=== PATIENT | female | born 1980 | race Caucasian/White ===

== ENCOUNTER 2017-01-22 14:47 | Emergency (ER) | payer MEDICAID ==
[2017-01-22 15:34] VITALS: O2SAT 100
--- NOTE | 2017-01-22 16:27 | C.PDOC ---
History Of Present Illness 36 yr old female presents to the ER s/p fall 3 days ago and now complaints of recurring vaginal bleeding. Patient states she misstepped 3 steps, landing on her lower back. Patient states, initially has resolved but then started again today. Patient denies trauma, nausea, vomiting, abdominal pain, diarrhea, dysuria, weakness or numbness. Patient is . SP FALL 3 DAYS AGO CO RECUR VB. PS MISSTEPPED 3 STEPS LANDED ON LOWER BACK. INITIALLY W VB, RESOLVED THEN RECUR AGAIN TODAY. DENIES ABD TRAUMA, PAIN. LMP 12/13/16 EGA 5 WKS 5D EXAM NAD ABD NEG BACK NEG Time Seen by Provider: 01/22/17 15:44 Chief Complaint (Nursing): Female Genitourinary History Per: Patient History/Exam Limitations: no limitations Onset/Duration Of Symptoms: Days (3 days) Current Symptoms Are (Timing): Still Present Past Medical History Reviewed: Historical Data, Nursing Documentation, Vital Signs Vital Signs: Last Vital Signs Temp 98.1 F 01/22/17 15:32 Pulse 108 H 01/22/17 15:32 Resp 18 01/22/17 15:32 BP 113/70 01/22/17 15:32 Pulse Ox 100 01/22/17 18:34 - [facility] Procedures EPISIOTOMY (03/21/14) Family History: States: No Known Family Hx - Social History Hx Alcohol Use: No Hx Substance Use: No - Immunization History Hx Tetanus Toxoid Vaccination: No Hx Influenza Vaccination: No Hx Pneumococcal Vaccination: No Review Of Systems Except As Marked, All Systems Reviewed And Found Negative. Gastrointestinal: Negative for: Nausea, Vomiting, Abdominal Pain, Diarrhea Genitourinary: Positive for: Vaginal Bleeding. Negative for: Dysuria Neurological: Negative for: Weakness, Numbness Physical Exam - Physical Exam Appears: Non-toxic, No Acute Distress Skin: Warm, Dry, No Rash Head: Atraumatic, Normacephalic Oral Mucosa: Moist Chest: Symmetrical, No Tenderness Cardiovascular: Rhythm Regular, No Murmur Respiratory: Normal Breath Sounds, No Rales, No Rhonchi, No Stridor, No Wheezing Gastrointestinal/Abdominal: Normal Exam, Soft, No Tenderness, No Guarding, No Rebound Extremity: Normal ROM, No Swelling Neurological/Psych: Oriented x3, Normal Speech, Normal Motor, Normal Sensation ED Course And Treatment O2 Sat by Pulse Oximetry: 100 (RA) Pulse Ox Interpretation: Normal Progress - Re-Evaluation Re-evaluation Note: 01/22/17 18:34 EXAM [facility] LABS, US REPORT PENDING - Data Reviewed Data Reviewed: Lab, Diagnostic imaging Medical Decision Making Medical Decision Making: PLAN: * US - Pelvis, Transvaginal * CBC * CMP * HCG * Urinalysis Disposition - Disposition Disposition Time: 19:00 Condition: STABLE Forms: [employer] ([place]) - Clinical Impression Clinical Impression: Threatened miscarriage, Fall - Scribe Statement The provider has reviewed the documentation as recorded by the Barbara Evangelista Provider Attestation: All medical record entries made by the Candelariaibpierce were at my direction and personally dictated by me. I have reviewed the chart and agree that the record accurately reflects my personal performance of the history, physical exam, medical decision making, and the department course for this patient. I have also personally directed, reviewed, and agree with the discharge instructions and disposition. Physician Patient Turnover Patient Signed Over To: Alexa Roach Handoff Comments: FU LABS, US REPORT, DISPO
[2017-01-22 18:31] LABS: RBC URINE 16 /hpf (0-3); URINE BACTERIA OCC (<OCC); URINE BILIRUBIN NEGATIVE (NEGATIVE); URINE BLOOD 3+ (NEGATIVE); URINE COLOR Red (YELLOW); URINE GLUCOSE (UA) NORMAL (Normal); URINE KETONE NEGATIVE (NEGATIVE); URINE LEUKOCYTE ESTERASE 1+ Leu/uL (Negative); URINE PROTEIN 1+ mg/dL (NEGATIVE); URINE UROBILINOGEN NORMAL mg/dL (0.2-1.0); WBC URINE 7 /hpf (0-5)
--- NOTE | 2017-01-22 18:46 | US ---
HISTORY: Trauma, by history 5 weeks . LMP 12/13/2016. COMPARISON: None available. TECHNIQUE: Transabdominal, transvaginal. Real -time technique with 2D, duplex and color Doppler. FINDINGS: UTERUS: Measures 4.1 x 4.4 x 3.7 cm. Normal in size and appearance. Subcentimeter fibroid anterior midline uterine body. ENDOMETRIUM: Measures 10.2 mm in diameter. Unremarkable. CERVIX: No cervical abnormality identified. Closed cervix 3.6 cm. RIGHT OVARY: Measures 2.2 x 3.2 x 3 cm. Mass lesion 1.4 x 1.7 cm likely complex debris laden or hemorrhagic cysts. Normal flow. LEFT OVARY: Measures 1.3 x 1.9 x 2.2 cm. No solid mass. Normal flow. FREE FLUID: No significant free fluid noted. OTHER FINDINGS: None. IMPRESSION: No visible intrauterine gestation. No identifiable ectopic . Complex cyst/ mass right ovary.
[2017-01-22 18:51] LABS: BASO % 0.2 % (0.0-2.0); HEMATOCRIT 38.9 % (34.0-47.0); LYMPH # 1.1 K/uL (1.0-4.3); LYMPH % 10.8 % (20.0-40.0); MEAN CELL VOLUME 89.6 fL (81.0-99.0); MEAN CORPUSCULAR HEMOGLOBIN 29.8 pg (27.0-31.0); MEAN CORPUSCULAR HGB CONC 33.2 g/dL (33.0-37.0); MEAN PLATELET VOLUME 8.4 fL (7.2-11.7); MONO # 0.3 K/uL (0.0-0.8); MONO % 3.2 % (0.0-10.0); NRBC % 0.1 % (0.0-2.0); RED CELL DISTRIBUTION WIDTH 13.7 % (11.5-14.5); WHITE BLOOD COUNT 9.7 K/uL (4.8-10.8)
[2017-01-22 18:58] LABS: CHLORIDE 105 mmol/L (98-107)
[2017-01-22 18:59] LABS: POTASSIUM 3.9 mmol/L (3.6-5.2); SODIUM 139 mmol/L (132-148)
[2017-01-22 19:01] LABS: ALB/GLOB RATIO 1.4 (1.0-2.1); AST/SGOT 23 U/L (14-36); BILIRUBIN,TOTAL 0.6 mg/dL (0.2-1.3); CARBON DIOXIDE 19 mmol/L (22-30); GFR AFRICAN-AMERICAN > 60
[2017-01-22 19:02] LABS: ALKALINE PHOSPHATASE 58 U/L (38-126); ALT/SGPT 31 U/L (9-52); BLOOD UREA NITROGEN 7 mg/dL (7-17); CALCIUM 9.6 mg/dl (8.6-10.4); GLUCOSE,RANDOM 87 mg/dL (65-105)
[2017-01-22 20:13] VITALS: BP 111/72; PULSE 92; RESP 16; TEMP 98.6
== END 2017-01-22 20:13 | disposition home or self-care (01) ==
LOC: C.ER 14:47
DX: O20.0 Threatened abortion (principal); Z3A.01 Less than 8 weeks gestation of pregnancy; W10.8XXA Fall (on) (from) other stairs and steps, initial encounter; Y93.9 Activity, unspecified; Y92.9 Unspecified place or not applicable

== ENCOUNTER 2017-01-24 12:16 | Emergency (ER) | payer MEDICAID ==
[2017-01-24 12:22] VITALS: BP 105/67; PULSE 98; TEMP 98.6; O2SAT 99
--- NOTE | 2017-01-24 13:25 | C.PDOC ---
History Of Present Illness 36yo female with LMP on 12/13 presents to the ED for repeat Beta-HCG as instructed during her prior visit. Patient reports vaginal bleeding for the past 5 days and states she uses 2-3 pads per day. She denies any abdominal pain. Of note, patient was seen in the ED 2 days ago and had Beta levels of approximately 300 and an US was done, indicating a right ovarian cyst and no IUP was noted. Patient offers no additional medical complaints. Time Seen by Provider: 01/24/17 12:38 Chief Complaint (Nursing): Female Genitourinary History Per: Patient History/Exam Limitations: no limitations Onset/Duration Of Symptoms: Days (5) Current Symptoms Are (Timing): Still Present Reports Recently: Seen In ED (2 days ago) Recent travel outside of the [place]: No Additional History Per: Patient Past Medical History Reviewed: Historical Data, Nursing Documentation, Vital Signs Vital Signs: Last Vital Signs Temp 98.6 F 01/24/17 12:21 Pulse 98 H 01/24/17 12:21 Resp 20 01/24/17 14:41 BP 105/67 01/24/17 12:21 Pulse Ox 99 01/24/17 14:19 - Medical History PMH: No Chronic Diseases Surgical History: No Surg Hx - [facility] Procedures EPISIOTOMY (03/21/14) Family History: States: No Known Family Hx - Social History Hx Alcohol Use: No Hx Substance Use: No - Immunization History Hx Tetanus Toxoid Vaccination: No Hx Influenza Vaccination: No Hx Pneumococcal Vaccination: No Review Of Systems Gastrointestinal: Negative for: Abdominal Pain Genitourinary: Positive for: Vaginal Bleeding (x 5 days) Physical Exam - Physical Exam Additional Physical Exam Comments: Constitutional: No acute distress. WDWN. Head: Normocephalic. Atraumatic. Neck: Supple. Cardiovascular: Regular rate and rhythm. Respiratory: Clear to auscultation bilaterally. GI: Soft. Nontender. Nondistended. Normoactive bowel sounds. No rebound. No guarding. Neurologic: Alert, no focal deficit. ED Course And Treatment O2 Sat by Pulse Oximetry: 99 Medical Decision Making Medical Decision Making: Impression: 36y/o female with vaginal bleeding x 5 days; On patient;s last visit 2 days ago, was informed of right ovarian cyst and no IUP, Beta levels were approximately 300 and patient was informed to return for repeat bloodwork. Plan: -- Beta-HCG Bllod type from last visit noted to be A+. 215 pm discussed with pt that bhcg levels decreasing, unlikely to be a viable . 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 Return to ER for any heavy bleeding. abdomial pain, fainiting or any other concerns. Instructions: Threatened Miscarriage (ED) Forms: [employer] ([place]), General Discharge Instructions - Clinical Impression Clinical Impression: Threatened - PA / ASSEMBLY LEAD PERSON / Resident Statement MD/DO has reviewed & agrees with the documentation as recorded. - Scribe Statement The provider has reviewed the documentation as recorded by the Scribe Fauzia Herzog All medical record entries made by the Candelariaibe were at my direction and personally dictated by me. I have reviewed the chart and agree that the record accurately reflects my personal performance of the history, physical exam, medical decision making, and the department course for this patient. I have also personally directed, reviewed, and agree with the discharge instructions and disposition.
[2017-01-24 14:42] VITALS: RESP 20
== END 2017-01-24 14:41 | disposition home or self-care (01) ==
LOC: C.ER 12:16
DX: O20.0 Threatened abortion (principal); Z3A.00 Weeks of gestation of pregnancy not specified